=== PATIENT | female | born 1960 | race African-American/Black ===

== ENCOUNTER 2017-04-16 16:48 | Emergency (ER) | payer OTHER ==
[~2017-04-16] VITALS: Ht 172.7 cm; Wt 117.9 kg
--- NOTE | ~2017-04-16 | CR141 ---
[facility] A Service of [facility] RADIOLOGY TEXT RESULTS PATIENT: SHARYN LOMBARDI LOCATION: [place] : 58 UNIT #: [id number] AGE: [address]: Deepa Fatima APRN SEX: F ORDER DR: [id number] [facility] [address]. [place], [place] [address] [id number] E MR#: [id number] #: [id number] NAME: SHARYN LOMBARDI : 1960 SEX: F STUDY DATE/TIME: 04/16/2017 17:18 UNIT: [facility] ROOM: STUDY DESCRIPTION: CR Hand Min 3 Views Lt Attending Physician: Deepa Fatima A.P.R.N. Ordering Physician: Tammy Booker A.P.R.N. Primary Care Physician: [facility] MEDICAL IMAGING REPORT This report is preliminary unless electronic signature is present EXAM Left hand, 3 views. HISTORY Hand pain today. No injury. FINDINGS Three views of the left hand demonstrate mild soft tissue swelling over the dorsum of the hand. Bone alignment is satisfactory. Mild multifocal degenerative changes in the second through fifth digits. Metal rings overlie and partly obscure the proximal phalanx of the fourth digit. Mild additional degenerative changes in the wrist. IMPRESSION No acute findings are identified. Dictated by... Shad Cannon M.D. THIS IS AN ELECTRONICALLY VERIFIED REPORT Shad Cannon M.D. at 04/17/2017 6:07 PM ANDRESSA/nancy TD: 04/16/2017 23:26 JOB #: [id number] MEDICAL IMAGING REPORT Page 1 of 1 COPY
== END 2017-04-16 19:44 | disposition home or self-care (01) ==
LOC: CFTX 16:48 → CED 16:48 → CFTX 19:18
DX: M19.042 Primary osteoarthritis, left hand (principal); I10 Essential (primary) hypertension; J45.909 Unspecified asthma, uncomplicated
CPT/HCPCS: 29125; 73130; 96372; 99283; J1885